=== PATIENT | male | born 1975 | race African-American/Black ===

== ENCOUNTER 2020-08-16 07:44 | Emergency (ER) | payer SELFPAY | END 2020-08-16 08:33 | disposition home or self-care (01) | LOC: MADERS 07:44 | DX: H61.21 Impacted cerumen, right ear (principal); F17.210 Nicotine dependence, cigarettes, uncomplicated | CPT/HCPCS: 99282 ==

== ENCOUNTER 2021-08-21 23:51 | Emergency (ER) | payer SELFPAY ==
[2021-08-22] MEDS ORDERED: Ketorolac Tromethamine 30 MG/ML VIAL ONE (00:23)
[2021-08-22] MEDS ORDERED: Ondansetron ODT 4 MG TAB ONE ×2 (00:23→00:35)
[2021-08-22 01:13] LABS: Bilirubin Negative (Negative); Blood, Urine Negative (Negative); Clarity Cloudy (Clear); Glucose, Urine (Dipstick) Negative (Negative); Ketone, Urine Negative (Negative); Leukocyte Negative (Negative); Nitrite Negative (Negative); Protein, Urine (Dipstick) Trace mg/dL (Neg-Trace); pH, Urine 8.5 (5.0-9.0)
[2021-08-22 01:26] LABS: ALT (SGPT) 16 U/L (8-55); AST (SGOT) 31 U/L (5-34); Albumin 4.2 g/dL (3.5-5.0); Alkaline Phosphatase 92 U/L (40-110); Anion Gap 16 mmol/L (10-20); BUN (Urea Nitrogen) 11 mg/dL (8.9-20.6); Bilirubin, Total 0.2 mg/dL (0.2-1.2); Calc. Creatinine Clearance 0 mL/min (70-130); Calcium 9.5 mg/dL (7.8-10.44); Carbon Dioxide 26 mmol/L (22-29); Chloride 105 mmol/L (98-107); Globulin 3.8 g/dL (2.4-3.5); Glucose 129 mg/dL (70-105); Lipase 69 U/L (8-78); Potassium 3.8 mmol/L (3.5-5.1); Sodium 143 mmol/L (136-145)
[2021-08-22 01:29] LABS: Hemoglobin 12.9 g/dL (14.0-18.0); MDiff Complete? YES; Mean Corpuscular HGB CONC 29.5 g/dL (32.0-36.0); Mean Corpuscular Hemoglobin 28.4 pg (27.0-31.0); Mean Corpuscular Volume 96.2 fL (78.0-98.0); Mean Platelet Volume 10.5 fL (7.4-10.4); Platelet Count 91 thou/uL (130-400); RBC Distribution Width 13.2 % (11.5-14.5); Red Blood Cell (RBC) Count 4.56 mill/uL (4.70-6.10); White Blood Cell (WBC) Count 20.4 thou/uL (4.8-10.8)
[2021-08-22 01:30] LABS: Band 8 % (5-11); Eosinophils 1 % (0-10); Large Platelets SLIGHT; Lymphocytes 11 % (21-51); Monocytes 4 % (0-10); Neutrophil 75 % (42-75); Platelet Morphology Comment Appears Decreased; RBC Morphology Normal
[2021-08-22] MEDS ORDERED: Lidocaine 1% (PF) 30 ML VIAL ONE (02:05)
[2021-08-22] MEDS ORDERED: cefTRIAXone\\ROCEPHIN 1 GM VIAL ONE (02:05)
== END 2021-08-22 02:20 | disposition home or self-care (01) ==
LOC: MADERS 23:51
DX: N13.2 Hydronephrosis with renal and ureteral calculous obstruction (principal); D64.9 Anemia, unspecified; D72.829 Elevated white blood cell count, unspecified; D69.6 Thrombocytopenia, unspecified; F17.210 Nicotine dependence, cigarettes, uncomplicated
CPT/HCPCS: 74176; 80053; 81003; 83690; 85025; 87086; 94760; 96372; J0696; J1885; J2001; Q0162

== ENCOUNTER 2023-04-22 00:04 | Emergency (ER) | payer SELFPAY ==
[2023-04-22] MEDS ORDERED: Sodium Chloride 0.9% 1,000 ML ONE (00:35)
[2023-04-22] MEDS ORDERED: Ondansetron PF 4 MG/2 ML Vial ONE (00:35)
[2023-04-22 00:52] LABS: #Basophils 0.1 thou/uL (0.0-0.2); #Eosinphils 0.1 thou/uL (0.0-0.7); #Lymphocytes 2.1 thou/uL (1.20-3.40); #Monocytes 0.5 thou/uL (0.11-0.59); #Neutrophils 13.3 thou/uL (1.40-6.50); %Basophils 0.4 % (0.0-1.0); %Eosinophils 0.8 % (0.0-10.0); %Monocytes 3.1 % (0.0-10.0); %Neutrophils 82.8 % (42.0-75.0); Hematocrit 43.5 % (42.0-52.0); Hemoglobin 14.1 g/dL (14.0-18.0); Mean Corpuscular HGB CONC 32.4 g/dL (32.0-36.0); Mean Corpuscular Hemoglobin 30.8 pg (27.0-31.0); Mean Platelet Volume 10.9 fL (7.4-10.4); Platelet Adequacy Comment Appears Decreased; Platelet Count 72 10x3/uL (130-400); RBC Distribution Width 13.1 % (11.5-14.5); Red Blood Cell (RBC) Count 4.58 mill/uL (4.70-6.10)
[2023-04-22 01:08] LABS: ALT (SGPT) 20 U/L (8-55); AST (SGOT) 34 U/L (5-34); Albumin 4.5 g/dL (3.5-5.0); Alkaline Phosphatase 77 U/L (40-110); Anion Gap 12 mmol/L (10-20); BUN (Urea Nitrogen) 11 mg/dL (8.9-20.6); Calc. Creatinine Clearance 0 mL/min (70-130); Calcium 9.6 mg/dL (7.8-10.44); Chloride 108 mmol/L (98-107); Estimated GFR 68; Globulin 3.8 g/dL (2.4-3.5); Glucose 127 mg/dL (70-105); Lipase 42 U/L (8-78); Magnesium 1.9 mg/dL (1.6-2.6); Potassium 3.8 mmol/L (3.5-5.1); Protein, Total 8.3 g/dL (6.0-8.3); Sodium 141 mmol/L (136-145)
[2023-04-22 01:10] LABS: Carbon Dioxide 25 mmol/L (22-29)
[2023-04-22 01:27] LABS: Bilirubin, Total 0.3 mg/dL (0.2-1.2)
[2023-04-22] MEDS ORDERED: Ketorolac Tromethamine 30 MG/ML VIAL ONE (01:34)
[2023-04-22 01:41] LABS: Acetaminophen Less than 10 mcg/mL (10.0-30.0); Alcohol Less than 10.0 mg/dL (Less than 10); Salicylate Less than 8.0 mg/dL (15.0-30.0)
[2023-04-22] MEDS ORDERED: cefTRIAXone (ROCEPHIN) 2 GM VIAL ONE (01:48)
[2023-04-22] MEDS ORDERED: Sodium Chloride 0.9% 100 ML ONE (01:48)
[2023-04-22 02:10] LABS: Bilirubin Negative (Negative); Blood, Urine Moderate (Negative); Glucose, Urine (Dipstick) Negative (Negative); Ketone, Urine Negative (Negative); Leukocyte Negative (Negative); Nitrite Negative (Negative); Protein, Urine (Dipstick) Negative (Neg-Trace); Specific Gravity, Urine 1.015 (1.005-1.030); Urobilinogen 0.2 mg/dL (Less than 2)
[2023-04-22 02:12] LABS: CAUTI Indications for Culture Pelvic or flank pain; Clarity Hazy (Clear); RBC/HPF Greater than 50 HPF (0-3); Squamous Epithelial 0-3 HPF (0-3); WBC/HPF 0-3 HPF (0-3)
[2023-04-22 02:13] LABS: Urine Culture Reflex No No
[2023-04-22 02:25] LABS: Phencyclidine (PCP) Not Detected (NotDetected); THC/Cannabinoid Screen Not Detected (NotDetected)
[2023-04-22 02:26] LABS: Amphetamine Not Detected (NotDetected); Barbiturates Screen Not Detected (NotDetected); Benzodiazepine Screen Not Detected (NotDetected); Cocaine Metabolite Screen Detected (NotDetected); Methadone Not Detected (NotDetected); Methamphetamine Not Detected (NotDetected); Opiate Screen Not Detected (NotDetected); Oxycodone Screen Not Detected (NotDetected); Tricyclic Screen Not Detected (NotDetected)
== END 2023-04-22 03:08 | disposition home or self-care (01) ==
LOC: MADERS 00:04
DX: N13.2 Hydronephrosis with renal and ureteral calculous obstruction (principal); F14.10 Cocaine abuse, uncomplicated; D69.6 Thrombocytopenia, unspecified; F17.210 Nicotine dependence, cigarettes, uncomplicated
CPT/HCPCS: 74177; 80053; 80306; 80307; 81001; 83690; 83735; 85025; 87040; 87086; 96361; 96365; 96375; J0696; J1885; J2405; J3490; J7050